=== PATIENT | male | born 1960 | race American Indian/Alaskan Native ===

== ENCOUNTER 2017-10-16 07:22 | Day surgery (SDC) | payer BC ==
[2017-10-08 11:20] VITALS: BMI 48.8
[2017-10-16] MEDS ORDERED: Propofol 10 mg/ml Inj (20 ML) ONE (09:19)
[2017-10-16] MEDS ORDERED: Lactated Ringer's 1,000 ML IV SCH (09:45)
[2017-10-16 10:43] VITALS: RESP 18; O2SAT 96
[2017-10-16 11:10] VITALS: BP 118/62; PULSE 64; TEMP 97.5
== END 2017-10-16 11:29 | disposition home or self-care (01) ==
LOC: ENDO 07:22
PROVIDERS: ATTEND Internal Medicine Gastroenterology
DX: K25.9 Gastric ulcer, unspecified as acute or chronic, without hemorrhage or perforation (principal); K62.1 Rectal polyp; K64.8 Other hemorrhoids; E11.9 Type 2 diabetes mellitus without complications; Z85.46 Personal history of malignant neoplasm of prostate; G47.33 Obstructive sleep apnea (adult) (pediatric); E78.00 Pure hypercholesterolemia, unspecified; E03.9 Hypothyroidism, unspecified; R10.13 Epigastric pain; R19.4 Change in bowel habit; R10.11 Right upper quadrant pain; K29.70 Gastritis, unspecified, without bleeding
CPT/HCPCS: 43239; 45380; 82948; 88305; 88342; J2001; J2704; J7040; J7120